=== PATIENT | female | born 1955 | race Caucasian/White ===

== ENCOUNTER → 2023-05-01 13:42 | Outpatient (REF) | payer MEDICARE, OTHER, SELFPAY | LOC: HWRAD 13:42 | PROVIDERS: ATTENDING PHYSICIAN Student in an Organized Health Care Education/Training Program; FAMILY PHYSICIAN Nurse Practitioner | DX: C51.9 Malignant neoplasm of vulva, unspecified (principal) | CPT/HCPCS: 76830; 76856 ==

== ENCOUNTER → 2023-05-15 07:39 | Outpatient (REF) | payer MEDICARE, OTHER, SELFPAY | LOC: HWRAD 07:39 | PROVIDERS: ATTENDING PHYSICIAN Student in an Organized Health Care Education/Training Program; FAMILY PHYSICIAN Nurse Practitioner | DX: M54.16 Radiculopathy, lumbar region (principal); M54.15 Radiculopathy, thoracolumbar region; M51.36 Other intervertebral disc degeneration, lumbar region | CPT/HCPCS: 72131 ==

== ENCOUNTER → 2024-04-24 14:56 | Outpatient (REF) | payer MEDICARE, OTHER, SELFPAY | LOC: HWRAD 14:56 | PROVIDERS: ATTENDING PHYSICIAN Nurse Practitioner | DX: R05.1 Acute cough (principal); J34.89 Other specified disorders of nose and nasal sinuses | CPT/HCPCS: 71046 ==

== ENCOUNTER → 2024-06-04 08:29 | Outpatient (REF) | payer MEDICARE, OTHER, SELFPAY | LOC: HWRAD 08:29 | PROVIDERS: ATTENDING PHYSICIAN Podiatrist; FAMILY PHYSICIAN Nurse Practitioner | DX: M84.375A Stress fracture, left foot, initial encounter for fracture (principal) | CPT/HCPCS: 73700 ==